=== PATIENT | female | born 1960 | race Two or more races ===

== ENCOUNTER 2016-09-26 10:34 | Day surgery (SDC) | payer MEDICARE ==
[~2016-09-26] VITALS: Ht 175.3 cm; Wt 75.0 kg
[~2016-09-26 10:34] MED LIST: BACL-19 PO; LEVO112C2; LISI-170 PO; MORP20DI PO; TRAZ100T15 PO; ZIPR60CA2 PO
[2016-09-26 11:50] VITALS: BP 102/73
[2016-09-26] MEDS ORDERED: TIZA4TAB PO (11:58)
[2016-09-26] MEDS ORDERED: FENTANYL PF 100 MCG/2ML ONE (12:23)
[2016-09-26] MEDS ORDERED: MIDAZOLAM 1 MG/ML, 5ML ONE (12:24)
== END 2016-09-26 14:30 ==
LOC: OUT 10:34
DX: K22.2 Esophageal obstruction (principal); K21.9 Gastro-esophageal reflux disease without esophagitis; E78.5 Hyperlipidemia, unspecified; E03.9 Hypothyroidism, unspecified; G62.9 Polyneuropathy, unspecified; F41.9 Anxiety disorder, unspecified; Z87.39 Personal history of other diseases of the musculoskeletal system and connective tissue; K44.9 Diaphragmatic hernia without obstruction or gangrene; Z90.710 Acquired absence of both cervix and uterus; Z98.890 Other specified postprocedural states; Z90.49 Acquired absence of other specified parts of digestive tract; Z89.612 Acquired absence of left leg above knee
CPT/HCPCS: 43248; 99152; 99153; J2250; J3010

== ENCOUNTER → 2017-04-17 | Outpatient (CLI) | payer MEDICARE ==
[~2017-04-17] MED LIST changes: +TIZA4TAB PO
== END ==
LOC: RAD 08:57
PROVIDERS: ATTEND Internal Medicine Gastroenterology
DX: K21.9 Gastro-esophageal reflux disease without esophagitis (principal); K31.84 Gastroparesis; K22.2 Esophageal obstruction; R13.19 Other dysphagia; Z90.49 Acquired absence of other specified parts of digestive tract
CPT/HCPCS: 74181